=== PATIENT | female | born 2000 | race Caucasian/White ===

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

== ENCOUNTER 2020-02-06 00:32 | Emergency (ER) | payer OTHER, SELFPAY ==
[2020-02-06 00:36] VITALS: BP 123/78; PULSE 89; RESP 16; TEMP 36.8; O2SAT 97
--- NOTE | 2020-02-06 00:36 | W.ED.GENAD ---
Discharge Plan Disposition Patient Disposition: HOME Condition: Good Discharge Details Clinical Impression: Nausea and vomiting Primary Care Provider: Jane Ramachandran ED Provider: Colby Cheng Petty Meds and New Rx's Prescriptions: New Ondansetron Odt, 3 Tabs/Btl [Zofran Odt, 3 Tabs/Btl] 4 mg PO DIRECTED Qty: 3 RF: 0 Continued albuterol sulfate [ProAir HFA] 90 mcg/actuation HFA aerosol inhaler 2 puff Inhalation Q4H PRN Qty: 1 RF: 4 Kyleena 17.5 mcg/24 hr (5 years) intrauterine device 1 insert IY ONCE Qty: 1 RF: 0 triamcinolone acetonide 0.1 % cream 1 applic Topical BID PRNRF: 0 Complete Multivitamin Tablet 1 tab PO DAILY RF: 0 (DME) Space Chamber Plus 1 EACH spacer 1 ea Miscellaneous Q4H PRN Qty: 1 RF: 0 Discharge Instructions Instructions: Acute Nausea and Vomiting (ED) Additional Instructions: Would stick with a liquid diet for today and advance slowly if tolerating. Zofran if required for recurrent nausea/vomiting. Follow-up with primary care. Return to ED for fever, abdominal pain, persistent vomiting. Referrals: Jane Ramachandran, [facility] [Primary Care Provider] - Medical Decision Making Patient presenting with sudden onset nausea and vomiting. No associated abdominal pain, diarrhea or fever. Benign abdomen here. Looks well. Will place IV and give fluids and Zofran. Check labs and urine. 02:00 - Zofran helped some but still feels nauseated. Laboratory studies unremarkable other than potassium being a little low which should correct itself once able to tolerate p.o. Will give dose of Phenergan and finish fluids and reevaluate. 02:50 - Patient feeling much better. Phenergan has made her sleepy but resolved her nausea. We will plan discharge home with a few Zofran tablets if needed. Liquid diet for today and advance as tolerated. Follow-up with primary care. Return to ED if abdominal pain, fever, recurrent/persistent vomiting. Medical Records Medical records reviewed: Yes I reviewed the patient's medical records. Lab Data Lab results reviewed: Yes I reviewed the patient's lab results. HPI General Mode of arrival: ambulatory. Date/Time Provider Initiated Documentation: 02/06/20 00:33. Limitations to Documentation: no limitations. Information obtained by: patient, RN notes reviewed and old records reviewed. HPI Narrative: Patient presents to ED with complaint of nausea and vomiting sudden onset this evening. Had been fine all day. Reports similar events in the past maybe once every 6 to 7 months. She denies any abdominal pain or diarrhea. She denies . She denies urinary symptoms. Typically requires a visit to the ED for fluids and medication before she is able to stop vomiting. Related Data Home Medications Medication Instructions Recorded Confirmed Space Chamber Plus #1 02/01/16 02/06/20 albuterol sulfate 90 mcg/actuation 2 puff INHALATION Q4H PRN #1 02/16/18 02/06/20 aerosol inhaler inhaler levonorgestrel 1 insert IY ONCE #1 each 04/08/18 02/06/20 triamcinolone acetonide 0.1 % 1 applic TOPICAL BID PRN gm 07/09/19 02/06/20 topical cream multivitamin,[id number] 1 tab PO DAILY 02/04/20 02/06/20 Ondansetron ODT, 3 tabs/btl 4 mg PO DIRECTED #3 tab 02/06/20 [Zofran ODT, 3 tabs/btl] Previous Rx's Medication Instructions Recorded albuterol sulfate 90 mcg/actuation 2 puff INHALATION Q4H PRN #1 02/16/18 aerosol inhaler inhaler levonorgestrel 1 insert IY ONCE #1 each 04/08/18 Ondansetron ODT, 3 tabs/btl 4 mg PO DIRECTED #3 tab 02/06/20 [Zofran ODT, 3 tabs/btl] Allergies Allergy/AdvReac Type Severity Reaction Status Date / Time No Known Allergies Allergy Verified 02/06/20 00:46 General GARRY: 3 Review of Systems Narrative: As documented in HPI otherwise negative as below. Const: no fever, chills, weakness Resp: no cough, SOB, pleuritic pain CV: no CP, diaphoresis, edema, syncope GI: no abdominal pain, diarrhea Neuro: no numbness, focal weakness, confusion PFSH Medical History Anxiety Asthma Chest skin lesion (09/08/14) Eczema IUD surveillance (~04/08/18) Kyleena Mild intermittent asthma without complication (02/01/16) Neck pain Acute with new job .. seemingly 2' chronic back pain plus hours in chair and inability to stretch (had been able to lay supine for breaks in last job). Right ovarian cyst 8x4.9x6.3cm simple cyst US on 10/08/19 Decreased in size to 3.8 cm 10/18/2019 Thoracic back pain Acute on chronic issue.. Hx since childhood, pronounced as adolescent (2' breast weight?). 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, [employer] Pets and animals: Yes Pets and animals: cat(s) and dog(s) Sexually active: Yes Do you think of yourself as: straight/heterosexual Current gender identity: female What type of physical activity do you participate in: other Details: 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 Const: WDWN female in NAD. HEENT: NC/AT. Normal facial exam. Eyes: Normal conjunctiva and sclera. Neck: Supple. Trachea midline. Lungs: Normal respiratory effort. GI: Soft. NT/ND. No guarding or rebound. Neuro: A+O x 3. Normal speech, mentation, gait. Cranial nerves II - XII grossly intact. No gross motor or sensory deficit. Ext: No C/C/E. Skin: Warm and dry without rash.
[2020-02-06] MEDS: Ondansetron 4 MG/2 ML VIAL IVP (01:01)
[2020-02-06] MEDS: Lactated Ringers 1,000 ML 1000 ML IV (01:02)
[2020-02-06 01:22] LABS: Abs Immature Grans 0.01 10^3/uL (0.0-0.06); Absolute Basophil Count 0.02 10^3/uL (0.0-0.2); Absolute Eosinophil Count 0.19 10^3/uL (0.0-0.7); Absolute Lymphocyte Count 2.12 10^3/uL (1.2-3.4); Absolute Monocyte Count 0.58 10^3/uL (0.1-0.8); Absolute Neutrophil Count 3.63 10^3/uL (1.2-6.7); Basophils % 0.3; Eosinophils % 2.9; HCT 37.8 % (36.0-46.0); HGB 13.1 g/dL (11.2-15.7); Immature Grans % 0.2; Lymphocytes % 32.4; MCH 31.6 pg (27.0-33.0); MCHC 34.7 % (32.0-36.0); MCV 91.3 fL (80-95); MPV 10.3 fL (8.0-11.0); Monocytes % 8.9; Neutrophils % 55.3; Nucleated RBC 0 %; Platelet Count 335 10^3/uL (130-400); RBC 4.14 10^6/uL (3.93-5.22); RDW 12.1 % (11.7-14.6); RDW-SD 40.4 fL; WBC 6.55 10^3/uL (4.4-10.8)
[2020-02-06 01:24] LABS: Bilirubin Negative (Negative); Blood Trace-lysed (Negative); Clarity Clear (Clear); Glucose Negative (Negative); Ketones Trace mg/dL (Negative); Leukocyte Esterase Negative (Negative); Nitrite Negative (Negative); Specific Gravity >= 1.030 (1.005-1.025); Urobilinogen 0.2 EU/dL (Up TO 0.2); pH 6.5 (5-8)
[2020-02-06 01:33] LABS: Epithelial Cells Rare HPF (Negative); RBC 0-2 HPF (0-2); WBC 0-2 HPF (0-5)
[2020-02-06 01:34] LABS: Bacteria Moderate HPF (Negative); C & S Indicated? Yes; Casts Negative LPF (Negative); Crystals Negative HPF (Negative); Mucus Negative (Negative); Other Cells Negative (Negative)
[2020-02-06 01:43] VITALS: BP 118/64; PULSE 77; RESP 16; O2SAT 98
[2020-02-06 01:50] LABS: ALT 13 U/L (14-59); AST 11 U/L (15-37); Albumin 4.1 g/dL (3.4-5.0); Alkaline Phosphatase 73 U/L (46-116); Anion Gap 10.7 mmol/L (3-11); BUN 12 mg/dL (7-18); Bilirubin, Total 1.8 mg/dL (0.2-1.0); CO2 25.3 mmol/L (21.0-32.0); CREATININE 0.86 mg/dL (0.55-1.02); Calcium 9.1 mg/dL (8.5-10.1); Chloride 104 mmol/L (98-107); Glucose 100 mg/dL (74-106); Potassium 3.2 mmol/L (3.5-5.1); Sodium 140 mmol/L (136-145)
[2020-02-06] MEDS: Ondansetron O.D.T. 4 MG TABEF, 3 TABS/BTL PO (03:03)
== END 2020-02-06 03:10 | disposition home or self-care (01) ==
PROVIDERS: Emergency Provider Emergency Medicine; PCP Nurse Practitioner
DX: R11.2 Nausea with vomiting, unspecified (principal); E87.6 Hypokalemia
CPT/HCPCS: 36415; 80053; 81025; 96361; 96365; 96375; 99284; 81003; 81015; 85025; 87086; J2405

== ENCOUNTER 2020-02-09 13:38 | Outpatient (CLI) | payer OTHER, SELFPAY ==
--- NOTE | 2020-02-09 15:52 | DI.RAD_ITS ---
EXAM: XR SCOLIOSIS T-L SPINE CLINICAL HISTORY: evaluate curvature; r/o bony pathology, thoracic back AND NECK pain, m54.6,. TECHNIQUE: 2D digital imaging was performed. COMPARISON: No exams were available for comparison FINDINGS: BONES: No acute fracture is present. There is a very mild left convex scoliosis of the thoracic spine from T6 through T12. The vertebral bodies and posterior elements are unremarkable. Bones are jesus lly mineralized. JOINTS: No dislocation present. SOFT TISSUE: Note is made of an intrauterine device in the pelvis. IMPRESSION: Minimal left convex scoliotic curvature of the thoracic spine. DATA REPOSITORY: RADIATION DOSE DELIVERED:
== END 2020-02-09 13:58 ==
PROVIDERS: PCP Nurse Practitioner; Visit Provider Student in an Organized Health Care Education/Training Program
DX: M41.84 Other forms of scoliosis, thoracic region (principal)
CPT/HCPCS: 72081

== ENCOUNTER 2020-03-24 14:17 | Outpatient (CLI) | payer OTHER, SELFPAY ==
[2020-03-29 01:22] LABS: Patient Race White; SARS-CoV-2 RNA Undetected (Undetected); SARS-CoV-2 Specimen Source Nasal
== END 2020-03-24 14:37 ==
PROVIDERS: PCP Nurse Practitioner; Visit Provider Nurse Practitioner Adult Health
DX: R09.81 Nasal congestion (principal)
CPT/HCPCS: U0003

== ENCOUNTER 2020-05-23 01:45 | Outpatient (CLI) | payer OTHER, SELFPAY ==
--- NOTE | 2020-05-23 08:14 | DI.RAD_ITS ---
EXAM: XR CERVICAL SP COMP W FLEX/EXT CLINICAL HISTORY: neck pain,m54.2, ? bony patho, eval curvature. TECHNIQUE: 2D digital imaging was performed. COMPARISON: No exams were available for comparison FINDINGS: BONES: No fracture or destructive lesion. Vertebral bodies are unremarkable. DISKS: Intervertebral disc spaces are maintained. No significant neural foraminal encroachment is not ed. ALIGNMENT: There is mild straightening of the normal cervical lordosis in the neutral position. No s ignificant subluxation is seen with flexion or extension. The odontoid and atlantoaxial articulation s are normal. SOFT TISSUE: Normal. The lung apices are clear. IMPRESSION: Unremarkable radiographs of the cervical spine. DATA REPOSITORY: RADIATION DOSE DELIVERED:
== END 2020-05-23 02:05 ==
PROVIDERS: PCP Nurse Practitioner; Visit Provider Student in an Organized Health Care Education/Training Program
DX: M54.2 Cervicalgia (principal)
CPT/HCPCS: 72052

== ENCOUNTER 2020-06-08 03:48 | Outpatient (CLI) | payer OTHER, SELFPAY ==
--- NOTE | 2020-06-08 08:00 | DI.US_ITS ---
EXAM: US SOFT TISSUE HEAD OR NECK CLINICAL HISTORY: evaluate nodule,LESION OF MANDIBLE,M27.9. TECHNIQUE: Ultrasound was performed using standard protocol. COMPARISON: No exams were available for comparison FINDINGS: Sonographic assessment utilizing grayscale and color Doppler imaging was performed and targeted to th e area of clinical concern. There is an ovoid well-circumscribed hypoechoic mass in the soft tissues overlying the left mandible corresponding to the palpable abnormality. It measures 0.6 x 0.2 x 0.6 cm. There does appear to be eccentric hyperechoic component with mild vascularity. No posterior acoustic enhancement or shadowin g is seen. The finding is nonspecific but has the sonographic appearance suggestive of a lymph node. If the finding persists a repeat ultrasound may be considered for. IMPRESSION: DATA REPOSITORY:
== END 2020-06-08 04:08 ==
PROVIDERS: PCP Nurse Practitioner; Visit Provider Student in an Organized Health Care Education/Training Program
DX: M27.8 Other specified diseases of jaws (principal)
CPT/HCPCS: 76536

== ENCOUNTER 2020-09-12 19:19 | Outpatient (REF) | payer OTHER, SELFPAY ==
[2020-09-14 15:09] LABS: Chlamydia Result Negative (Negative); GC Result Negative (Negative)
== END 2020-09-12 19:20 | disposition home or self-care (01) ==
LOC: LBN 19:19
PROVIDERS: PCP Student in an Organized Health Care Education/Training Program; Visit Provider Nurse Practitioner Women's Health
DX: Z11.3 Encounter for screening for infections with a predominantly sexual mode of transmission (principal)
CPT/HCPCS: 87491; 87591

== ENCOUNTER 2020-11-08 18:59 | Outpatient (REF) | payer OTHER, SELFPAY ==
[2020-11-09 12:22] LABS: COVID-19 RT-PCR UVMMC Result Negative (Negative)
== END 2020-11-08 19:00 | disposition home or self-care (01) ==
LOC: NCHCN 18:59
PROVIDERS: PCP Student in an Organized Health Care Education/Training Program; Visit Provider Internal Medicine
DX: Z20.822 Contact with and (suspected) exposure to COVID-19 (principal)
CPT/HCPCS: U0003

== ENCOUNTER 2021-04-16 10:21 | Outpatient (REF) | payer OTHER, SELFPAY ==
[2021-04-17 13:33] LABS: COVID-19 RT-PCR UVMMC Result Negative (Negative)
== END 2021-04-16 10:22 | disposition home or self-care (01) ==
LOC: LBN 10:21
PROVIDERS: PCP Student in an Organized Health Care Education/Training Program; Visit Provider Nurse Practitioner Family
DX: Z20.822 Contact with and (suspected) exposure to COVID-19 (principal); J06.9 Acute upper respiratory infection, unspecified
CPT/HCPCS: U0003

== ENCOUNTER 2021-04-23 19:41 | Outpatient (CLI) | payer OTHER, SELFPAY ==
--- NOTE | 2021-04-23 16:20 | DI.RAD_ITS ---
Exam(s) XR CHEST 2V PA LATERAL EXAM: XR CHEST 2V PA LATERAL CLINICAL HISTORY: COUGH, R05. TECHNIQUE: 2D digital imaging was performed. COMPARISON: No exams were available for comparison FINDINGS: Heart size is normal. The mediastinum is not widened. Lungs are clear. No infiltrates nor pleural effusions. IMPRESSION: No acute pulmonary findings. DATA REPOSITORY: RADIATION DOSE DELIVERED:
--- NOTE | 2021-04-23 16:32 | DI.VRAD_ITS ---
PROCEDURE INFORMATION: Exam: XR Chest Exam date and time: 04/23/2021 4:02 PM Age: 21 years old Clinical indication: Patient HX: Cough, neg covid test recently TECHNIQUE: Imaging protocol: XR of the chest. Views: 2 views. COMPARISON: CR XR CERVICAL SP COMP W FLEX/EXT 05/23/2020 8:03 AM FINDINGS: Lungs: Clear lungs. Pleural spaces: No sizable pleural effusion. No pneumothorax. Heart/Mediastinum: Cardiomediastinal silhouette is within normal limits. Bones/joints: No acute displaced fracture or dislocation. IMPRESSION: No acute cardiopulmonary process. Dictated and Authenticated by: Danish Vazquez MD. Ordering:NEFTALY Morales MD
== END 2021-04-23 20:01 ==
PROVIDERS: PCP Student in an Organized Health Care Education/Training Program; Visit Provider Nurse Practitioner Family
DX: R05.8 Other specified cough (principal)
CPT/HCPCS: 71046

== ENCOUNTER 2021-06-05 11:52 | Outpatient (REF) | payer BC, SELFPAY ==
--- NOTE | 2021-06-05 10:35 | PAPFT_PTH ---
PATIENT: Andrew Vela LOC: [facility] U#:[id number] AGE/SX: 21/F ROOM: RE06/05/[address]: Arpita Clarke NP : 2000 BED: DIS: 06/05/2021 SPEC #: [id number] RECD: 06/05/21 12:47 STATUS: DAWSON REDeepti #: [id number] NILAM: 06/05/21 10:[address]: Arpita Clarke NP DEPT: [facility] Cytology RECD BY: Kathy Hubbard ENTERED: 06/05/21 12:47 SP TYPE: PAPFT OTHR DR: Liliana Elder, DO Tissues: 1 - CX/ENDOCX FOR PAP SMEARS Procedures: PAP THIN PREP/[facility] Screening Comments: [id number] (CHLAMYDIA/GC)
[2021-06-06 14:51] LABS: Chlamydia Result Negative (Negative); GC Result Negative (Negative)
== END 2021-06-05 11:53 | disposition home or self-care (01) ==
LOC: LBN 11:52
PROVIDERS: PCP Student in an Organized Health Care Education/Training Program; Visit Provider Nurse Practitioner Women's Health
DX: Z11.3 Encounter for screening for infections with a predominantly sexual mode of transmission (principal); Z12.4 Encounter for screening for malignant neoplasm of cervix; R87.610 Atypical squamous cells of undetermined significance on cytologic smear of cervix (ASC-US)
CPT/HCPCS: 87491; 87591; 88142

== ENCOUNTER 2022-02-27 15:56 | Outpatient (REF) | payer BC, SELFPAY ==
[2022-03-01 15:21] LABS: Chlamydia Result Negative (Negative); GC Result Negative (Negative)
== END 2022-02-27 15:57 | disposition home or self-care (01) ==
LOC: LBN 15:56
PROVIDERS: Visit Provider Nurse Practitioner Women's Health
DX: Z11.3 Encounter for screening for infections with a predominantly sexual mode of transmission (principal)
CPT/HCPCS: 87491; 87591

== ENCOUNTER 2022-04-13 15:23 | Outpatient (REF) | payer BC, SELFPAY ==
[2022-04-16 08:15] LABS: Chlamydia Result Negative (Negative); GC Result Negative (Negative)
== END 2022-04-13 15:24 | disposition home or self-care (01) ==
LOC: LBN 15:23
PROVIDERS: Visit Provider Nurse Practitioner Family
DX: R30.0 Dysuria (principal); Z11.3 Encounter for screening for infections with a predominantly sexual mode of transmission; N89.8 Other specified noninflammatory disorders of vagina
CPT/HCPCS: 87491; 87591; 87086; 87480; 87510; 87660

== ENCOUNTER 2022-09-03 11:18 | Outpatient (REF) | payer BC, SELFPAY ==
--- NOTE | 2022-09-03 11:15 | PAPFT_PTH ---
PATIENT: Andrew Vela LOC: [facility] U#:[id number] AGE/SX: 22/F ROOM: RE09/03/[address]: Arpita Clarke NP : 2000 BED: DIS: 09/03/2022 SPEC #: [id number] RECD: 09/03/22 13:05 STATUS: DAWSON PATEL #: [id number] NILAM: 09/03/22 11:[address]: Arpita Clarke NP DEPT: [facility] Cytology RECD BY: Kathy Hubbard ENTERED: 09/03/22 13:05 SP TYPE: PAPFT OTHR DR: Love Local Tissues: 1 - CX/ENDOCX FOR PAP SMEARS Procedures: PAP THIN PREP/[facility] Screening Comments: [id number] (CHLAMYDIA/GC)
[2022-09-04 14:34] LABS: Chlamydia Result Negative (Negative); GC Result Negative (Negative)
== END 2022-09-03 11:19 | disposition home or self-care (01) ==
LOC: LBN 11:18
PROVIDERS: Visit Provider Nurse Practitioner Women's Health
DX: Z11.3 Encounter for screening for infections with a predominantly sexual mode of transmission (principal); Z12.4 Encounter for screening for malignant neoplasm of cervix
CPT/HCPCS: 87491; 87591; 88142

== ENCOUNTER 2023-10-07 16:14 | Outpatient (REF) | payer BC, SELFPAY ==
--- NOTE | 2023-10-07 15:45 | PAPFT_PTH ---
PATIENT: Andrew Vela LOC: [facility] U#:[id number] AGE/SX: 23/F ROOM: RE10/07/[address]: Arpita Clarke NP : 2000 BED: DIS: 10/07/2023 SPEC #: [id number] RECD: 10/07/23 17:36 STATUS: DAWSON JORGE #: [id number] NILAM: 10/07/23 15:[address]: Arpita Clarke NP DEPT: [facility] Cytology RECD BY: Kathy Hubbard ENTERED: 10/07/23 17:36 SP TYPE: PAPFT INDIO DR: Unknown,Unknown Tissues: 1 - CX/ENDOCX FOR PAP SMEARS Procedures: PAP THIN PREP/[facility] Screening HPV DNA PROBE Comments: [id number] (CHLAMYDIA/GC)
[2023-10-08 15:30] LABS: Chlamydia Result Negative (Negative); GC Result Negative (Negative)
== END 2023-10-07 16:15 | disposition home or self-care (01) ==
LOC: LBN 16:14
PROVIDERS: Visit Provider Nurse Practitioner Women's Health
DX: Z12.4 Encounter for screening for malignant neoplasm of cervix (principal); R87.610 Atypical squamous cells of undetermined significance on cytologic smear of cervix (ASC-US); Z11.51 Encounter for screening for human papillomavirus (HPV); R87.810 Cervical high risk human papillomavirus (HPV) DNA test positive; Z11.3 Encounter for screening for infections with a predominantly sexual mode of transmission
CPT/HCPCS: 87491; 87591; 88142; 87624

== ENCOUNTER 2023-10-29 16:21 | Outpatient (REF) | payer BC, SELFPAY ==
--- NOTE | 2023-10-29 14:00 | CER_PTH ---
PATIENT: Andrew Vela LOC: [facility] U#:[id number] AGE/SX: 23/F ROOM: RE10/29/[address]: April Gilbert MD : 2000 BED: DIS: 10/29/2023 SPEC #: [id number] RECD: 10/29/23 17:32 STATUS: DAWSON REQ #: [id number] NILAM: 10/29/23 14:[address]: April Gilbert DEPT: Surgical Specimen RECD BY: Kathy Hubbard ENTERED: 10/29/23 17:33 SP TYPE: CER INDIO DR: Unknown,Unknown Tissues: 1 - CERVICAL BIOPSY Procedures: GROSS AND MICRO LEVEL 4 Comments: [id number]
== END 2023-10-29 16:22 | disposition home or self-care (01) ==
LOC: LBN 16:21
PROVIDERS: Visit Provider Obstetrics & Gynecology
DX: R87.619 Unspecified abnormal cytological findings in specimens from cervix uteri (principal)
CPT/HCPCS: 88305

== ENCOUNTER 2024-10-12 15:47 | Outpatient (REF) | payer BC, SELFPAY ==
--- NOTE | 2024-10-12 15:30 | PAPFT_PTH ---
PATIENT: Andrew Vela LOC: [facility] U#:[id number] AGE/SX: 24/F ROOM: RE10/12/[address]: Arpita Clarke NP : 2000 BED: DIS: 10/12/2024 SPEC #: [id number] RECD: 10/12/24 18:19 STATUS: DAWSON PATEL #: [id number] NILAM: 10/12/24 15:[address]: Arpita Clarke NP DEPT: [facility] Cytology RECD BY: Kathy Hubbard ENTERED: 10/12/24 18:19 SP TYPE: PAPFT OT DR: Unknown,Unknown Tissues: 1 - CX/ENDOCX FOR PAP SMEARS Procedures: PAP THIN PREP/UVM Screening Comments: [id number] (CHLAMYDIA/GC)
[2024-10-13 11:28] LABS: Chlamydia Result Negative (Negative); GC Result Negative (Negative)
== END 2024-10-12 15:48 | disposition home or self-care (01) ==
LOC: LBN 15:47
PROVIDERS: Visit Provider Nurse Practitioner Women's Health
DX: Z12.4 Encounter for screening for malignant neoplasm of cervix (principal); Z11.3 Encounter for screening for infections with a predominantly sexual mode of transmission
CPT/HCPCS: 87491; 87591; 88142

== ENCOUNTER 2025-02-09 15:31 | Outpatient (REF) | payer BC, SELFPAY ==
[2025-02-11 11:40] LABS: Chlamydia Result Negative (Negative); GC Result Negative (Negative)
== END 2025-02-09 15:32 | disposition home or self-care (01) ==
LOC: LBN 15:31
PROVIDERS: Visit Provider Nurse Practitioner Women's Health
DX: Z11.3 Encounter for screening for infections with a predominantly sexual mode of transmission (principal)
CPT/HCPCS: 87491; 87591